=== PATIENT | male | born 1995 | race Caucasian/White ===

== ENCOUNTER 2017-01-09 00:09 | Emergency (ER) | payer OTHER ==
[2017-01-09 01:19] VITALS: BP 114/73
[2017-01-09 02:27] LABS: Manual Entry Verification ROB0080; Mono Internal Control QC Line Present
--- NOTE | 2017-03-09 19:02 | ED ---
Influenza-Like Illness - HPI Summary HPI Summary: Patient presents with one week of a sore throat, fatigue and subjective fevers. He denies difficulty breathing or swallowing. No N/V/D, headache or body aches. - History of Current Complaint Chief Complaint: EDThroatPain Time Seen by Provider: 01/09/17 00:52 Hx Obtained From: Patient Onset/Duration: Gradual Onset, Lasting Weeks - 1, Still Present Severity: Moderate Associated Signs & Symptoms: Sore Throat - Allergy/Home Medications Allergies/Adverse Reactions: Allergies Allergy/AdvReac Type Severity Reaction Status Date / Time No Known Allergies Allergy Verified 01/09/17 01:15 PMH/Surg Hx/FS Hx/Imm Hx Previously Healthy: Yes Endocrine/Hematology History: Denies: Hx Diabetes, Hx Thyroid Disease Cardiovascular History: Denies: Hx Congestive Heart Failure, Hx Deep Vein Thrombosis, Hx Hypertension , Hx Myocardial Infarction, Hx Pacemaker/ICD Respiratory History: Denies: Hx Asthma, Hx Chronic Obstructive Pulmonary Disease (COPD), Hx Lung Cancer, Hx Pneumonia, Hx Pulmonary Embolism GI History: Denies: Hx Gall Bladder Disease, Hx Gastrointestinal Bleed, Hx Ulcer, Hx Urosepsis History: Denies: Hx Kidney Stones, Hx Renal Disease Neurological History: Denies: Hx Seizures Psychiatric History: Denies: Hx Anxiety, Hx Depression, Hx Schizophrenia, Hx Bipolar Disorder Infectious Disease History: No Infectious Disease History: Denies: Hx Clostridium Difficile, Hx Hepatitis, Hx Human Immunodeficiency Virus (HIV), Hx of Known/Suspected MRSA, Hx Shingles, Hx Tuberculosis, Hx Known/ Suspected VRE, Hx Known/Suspected VRSA, History Other Infectious Disease, Traveled Outside the [place] in Last 30 Days - Family History Known Family History: Positive: None, Diabetes - Social History Occupation: Student Lives: Alone Alcohol Use: None Substance Use Type: Reports: None Smoking Status (MU): Never Smoked Tobacco Have You Smoked in the Last Year: No Review of Systems Positive: Chills, Fatigue. Negative: Fever Positive: Sore Throat. Negative: Ear Ache, Nasal Discharge All Other Systems Reviewed And Are Negative: Yes Physical Exam Triage Information Reviewed: Yes Vital Signs On Initial Exam: Initial Vitals Temp Pulse Resp BP Pulse Ox 98.9 F 83 18 122/64 100 01/09/17 00:18 01/09/17 00:18 01/09/17 00:18 01/09/17 00:18 01/09/17 00:18 Vital Signs Reviewed: Yes Appearance: Positive: Well-Appearing, No Pain Distress, Well-Nourished Skin: Positive: Warm, Skin Color Reflects Adequate Perfusion, Dry, Soft Head/Face: Positive: Normal Head/Face Inspection Eyes: Positive: EOMI, DINA, Conjunctiva Clear ENT: Positive: Hearing grossly normal, Pharyngeal erythema, TMs normal. Negative: Tonsillar swelling, Tonsillar exudate, Trismus, Muffled/hoarse voice Neck: Positive: Supple, Nontender, No Lymphadenopathy Respiratory/Lung Sounds: Positive: Clear to Auscultation, Breath Sounds Present Cardiovascular: Positive: RRR Musculoskeletal: Negative: Edema Left, Edema Right Neurological: Positive: Sensory/Motor Intact, Alert, Oriented to Person Place, Time, NV Bundle Intact Distally, Normal Gait Psychiatric: Positive: Affect/Mood Appropriate AVPU Assessment: Alert Diagnostics - Vital Signs Vital Signs Temp Pulse Resp BP Pulse Ox 01/09/17 01:14 98.5 F 90 18 114/73 100 01/09/17 00:18 98.9 F 83 18 122/64 100 - Laboratory Lab Results: Lab Results 01/09/17 01/09/17 Range/Units 01:13 01:58 Monoscreen Positive H (Negative) Group A Strep Rapid Negative (Negative) Lab Statement: Any lab studies that have been ordered have been reviewed, and results considered in the medical decision making process. Flu Symptom Course/Dx - Diagnoses Differential Diagnosis/HQI/PQRI: Positive: Bronchitis, Influenza, Pneumonia, Upper Respiratory Infection Provider Diagnoses: Mononucleosis Discharge - Discharge Plan Condition: Stable Disposition: HOME Patient Education Materials: Mononucleosis (ED) Referrals: Non Staff,Doctor [Primary Care Provider] - Additional Instructions: Use ibuprofen 600mg three times daily with meals for the next 5-7 days to decrease swelling and pain. Perform warm water and salt gargling several times daily. Drink extra fluids and get plenty of rest. Return to the emergency department if symptoms worsen.
== END 2017-01-09 02:52 | disposition home or self-care (01) ==
LOC: ED 00:09
DX: B27.90 Infectious mononucleosis, unspecified without complication (principal); J02.9 Acute pharyngitis, unspecified; R53.83 Other fatigue
CPT/HCPCS: 36415; 86308; 87651; 99282

== ENCOUNTER 2017-01-15 11:37 | Emergency (ER) | payer OTHER ==
[2017-01-15 14:36] VITALS: BP 105/69
[2017-01-15] MEDS ORDERED: cefTRIAXone VIAL(*) 250 MG VIAL IM ONE (15:06)
[2017-01-15] MEDS ORDERED: methylPREDNISolone SOD SUCC* 125 MG 2 ML VIAL IM ONE (15:08)
[2017-01-15] MEDS ORDERED: Lidocaine 1% MPF* 2 ML VIAL INJ ONE (15:43)
[2017-01-15 18:55] LABS: Hematocrit 43 % (42-52); Hemoglobin 14.5 g/dl (14.0-18.0); Mean Corpuscular HGB Conc 34 g/dl (31-36); Mean Corpuscular Hemoglobin 29 pg (27-31); Mean Corpuscular Volume 86 fL (80-94); Mean Platelet Volume 8 um3 (7.4-10.4); Red Blood Count 4.96 10^6/ul (4.0-5.4); Red Cell Distribution Width 13 % (10.5-15); White Blood Count 11.1 10^3/ul (3.5-10.8)
[2017-01-15 19:00] LABS: Add Diff/Slide Review? Slide Review Added; Comments Flag Yes
[2017-01-15 19:15] LABS: Albumin 4.4 g/dL (3.2-5.2); BUN/Creatinine Ratio 21.1 (8-20); Calcium 9.3 mg/dL (8.6-10.3); EGFR Non-African American 106.5 (>60); Globulin 3.7 g/dL (2-4); Potassium 3.9 mmol/L (3.5-5.0); Total Bilirubin 0.7 mg/dL (0.2-1.0); Total Protein 8.1 g/dL (6.4-8.9)
--- NOTE | 2017-01-15 23:24 | UC ---
Axel Pate Michael, scribed for Karla Khan MD on 01/15/17 at 1518 . Throat Pain/Nasal Brian HPI - HPI Summary HPI Summary: 21 y/o male comes to [facility] presenting with a sore throat that started 2 weeks ago. The pt c/o dysphagia, which aggravates coughing and decreased appetite, and he denies a rash, cough, and all other symptoms. The pt requests to be recheck his mono status. He was seen on 01/09/17 and was dx with mononucleosis. He was not prescribed abx. The pt was instructed to use Ibuprofen for the throat pain and use a salt water treatment several times per day. - History of Current Complaint Chief Complaint: UCGeneralIllness Stated Complaint: MONO RECHECK Hx Obtained From: Patient, Medical Records Onset/Duration: Gradual Onset, Lasting Weeks, Still Present Severity: Moderate Pain Intensity: 7 Pain Scale Used: 0-10 Numeric Cough: Nonproductive Associated Signs & Symptoms: Positive: Negative - cough, Dysphagia, Other - sore throat. decreased appetite.. Negative: Rash - Allergies/Home Medications Allergies/Adverse Reactions: Allergies Allergy/AdvReac Type Severity Reaction Status Date / Time No Known Allergies Allergy Verified 01/09/17 01:15 Home Medications: Home Medications Ibuprofen [Advil] 400 mg 01/15/17 [History] PMH/Surg Hx/FS Hx/Imm Hx Endocrine History Of: Denies: Diabetes, Thyroid Disease, Hyperthyroidism, Hypothyroidism, Dyslipidemia Cardiovascular History Of: Denies: Cardiac Disorders, Hypertension, Pacemaker/ICD, Myocardial Infarction , Congestive Heart Failure, Atrial Fibrillation, Deep Vein Thrombosis, Bleeding Disorders Respiratory History Of: Denies: COPD, Asthma, Bronchitis, Pneumonia, Pulmonary Embolism GI/ History Of: Denies: Gastroesophageal Reflux, Ulcer, Gastrointestinal Bleed, Gall Bladder Disease, Kidney Stones, Diverticulitis, Renal Disease, Urosepsis Neurological History Of: Denies: Seizures Psychological History Of: Denies: Anxiety, Depression, Bipolar Disorder, Schizophrenia, Post Traumatic Stress Disorder Cancer History Of: Denies: Lung Cancer, Colorectal Cancer, Breast Cancer, Prostate Cancer, Cervical Cancer - Surgical History Surgical History: None - Family History Known Family History: Positive: Diabetes - Social History Occupation: Employed Part-time Lives: With Family Alcohol Use: None Substance Use Type: None Smoking Status (MU): Never Smoked Tobacco Have You Smoked in the Last Year: No Review of Systems Constitutional: Negative Skin: Negative Eyes: Negative ENT: Sore Throat, Other - dysphagia Respiratory: Negative Cardiovascular: Negative Gastrointestinal: Other - decreased appetite Genitourinary: Negative Motor: Negative Neurovascular: Negative Musculoskeletal: Negative Neurological: Negative Psychological: Negative All Other Systems Reviewed And Are Negative: Yes Physical Exam Triage Information Reviewed: Yes Appearance: Well-Nourished, Other: - sitting up. conversing easily and appropriately. no stridor. not drooling. Vital Signs: Initial Vital Signs Temp 98.8 F 01/15/17 14:30 Pulse 110 01/15/17 14:30 Resp 18 01/15/17 14:30 BP 105/69 01/15/17 14:30 Pulse Ox 96 01/15/17 14:30 Vital Signs Reviewed: Yes Eye Exam: Normal ENT: Positive: Pharyngeal erythema, Nasal congestion, TM dull, Tonsillar swelling, Tonsillar exudate, Other: - uvula midline. Neck: Positive: Supple, Nontender, Other: - + adenopathy Respiratory Exam: Normal Respiratory: Positive: Chest non-tender, Lungs clear, Normal breath sounds, No respiratory distress, No accessory muscle use Cardiovascular Exam: Normal Cardiovascular: Positive: RRR, No Murmur, Pulses Normal, Brisk Capillary Refill Abdominal Exam: Normal Abdomen Description: Positive: Nontender - no hsm grossly appreciated. no cvat. Bowel Sounds: Positive: Present Musculoskeletal Exam: Normal Neurological Exam: Normal Psychological Exam: Normal Skin Exam: Normal - no visible or reported rash Throat Pain/Nasal Course/Dx - Course Course Of Treatment: S/sx c/w acute tonsillitis, in the setting of recent mononucleosis dx. Repeat strep neg, throat cx sent (in the event of bacterial superinfection). No uvula deviation. Pt is able to drink liquids, but hard to swallow, Airway intact. He was given 125mg IM solumedrol. Also Rocephin x 1. Start ciprofloxacin, pending clinical progress and cx results. He will f/u with a pcp as soon as possible ([facility] referral #). Will f/u Dr. Rodriguez on Wednesday. Mr. Begum was strongly encouraged to go to the ED for worse or new problems in the meantime (include further difficulty swallow). Questions answered to the best of my ability. Work note written. discussed care of patient with Dr. Rodriguez (ENT) at 1525. - Differential Dx/Diagnosis Provider Diagnoses: Tonsillitis. Acute mononucleosis. Thrush (clinical) Discharge - Discharge Plan Condition: Stable Disposition: HOME Prescriptions: Levofloxacin TAB* [Levaquin TAB*] 500 mg PO DAILY #7 tab Nystatin SUSPENSION ORAL SYR* 100,000 units PO QID #1 bottle Patient Education Materials: Mononucleosis (ED), Tonsillitis (ED) Forms: *Work Release Referrals: [facility] PHYSICIAN REFERRAL [Outside] Dariusz Rodriguez MD [Medical Doctor] - Additional Instructions: You received an injection of 125mg IM solumedrol. You received an injection of 500mg IM rocephin. Tests today: Repeat strep test negative "Full" culture throat sent. Blood tests: cbc, cmp Follow up with a primary care physician as soon as you are able. Follow up with ENT (ear nose throat) physician on Wednesday. GO TO THE EMERGENCY DEPARTMENT FOR WORSE OR NEW PROBLEMS, ESPECIALLY IF YOU CAN NOT SWALLOW LIQUIDS. The documentation as recorded by the Axel campos Michael accurately reflects the service I personally performed and the decisions made by me, Karla Khan MD.
== END 2017-01-15 16:28 | disposition home or self-care (01) ==
LOC: UCEAST 11:37
DX: J03.90 Acute tonsillitis, unspecified (principal); B27.90 Infectious mononucleosis, unspecified without complication; B37.9 Candidiasis, unspecified
CPT/HCPCS: 36415; 80053; 85025; 87070; 87651; 96372; 99212; G0463; J0696; J2930

== ENCOUNTER 2018-11-17 21:07 | Emergency (ER) | payer OTHER ==
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
[2018-11-17 22:31] VITALS: BP 130/79
== END 2018-11-17 22:31 | disposition home or self-care (01) ==
LOC: ED 21:07 → SUPCPDRO 21:07 → ED 22:31
DX: M25.572 Pain in left ankle and joints of left foot (principal); M25.571 Pain in right ankle and joints of right foot; V43.52XA Car driver injured in collision with other type car in traffic accident, initial encounter; Y92.410 Unspecified street and highway as the place of occurrence of the external cause
CPT/HCPCS: 99281